=== PATIENT | male | born 1960 | race Caucasian/White ===

== ENCOUNTER 2020-09-04 17:36 | Emergency (ER) | payer OTHER, SELFPAY ==
--- NOTE | 2020-09-04 | XR_ITS ---
EXAMINATION: XR FINGER, LEFT CLINICAL INFORMATION: cut lmf on saw COMPARISON: None TECHNIQUE: 3 views of the left middle finger. FINDINGS: There is a bandage over the distal middle digit which obscures bone detail. There is a comminuted fracture of the distal tuft of the distal phalanx of the middle digit. There is displacement of fracture fragments. IMPRESSION: Comminuted fracture of the distal tuft of the middle digit.
[2020-09-04 17:51] VITALS: BP 153/88; PULSE 88; RESP 16; TEMP 36.7; O2SAT 96; BMI 36.3
[2020-09-04 20:19] VITALS: BP 181/104; PULSE 86; RESP 16; O2SAT 97
[2020-09-04] MEDS: Lidocaine HCl 2 % MPF 5 ML VIAL INFILTRATI ×2 (20:35)
--- NOTE | 2020-09-04 21:11 | PC.NURSE ---
PROVIDER AT BEDSIDE.
[2020-09-04 22:00] VITALS: BP 145/88; PULSE 85; RESP 15; O2SAT 98
--- NOTE | 2020-09-04 22:36 | ED.WOUNDLAC ---
HPI - Wound/Laceration General Chief Complaint: Wound/Laceration Stated Complaint: FINGER LAC Time Seen by Provider: 09/04/20 20:26 History of Present Illness HPI narrative: patient presents to ED for laceration of left middle finger caused by saw at work. Patient states has complete range of motion of finger and has sensation, but laceration is severe Extremity Location: left: hand Place: work Patient tetanus UTD: Yes Context: accidental Associated symptoms: none Treatments prior to arrival: bandage Related Data Previous Rx's Medication Instructions Recorded clindamycin HCl 300 mg PO Q8H #30 cap 09/04/20 naproxen 500 mg PO BID PRN #20 tab 09/04/20 Allergies Allergy/AdvReac Type Severity Reaction Status Date / Time Penicillins Allergy Rash Verified 09/04/20 17:50 Review of Systems Review of Systems: Yes all other systems are reviewed and are negative Constitutional: Constitutional: Reports as per HPI and Reports no additional constitutional complaints Comments: rest of review systems normal. Only abnormality is left middle finger laceration. Musculoskeletal: Comments: positive for left middle finger laceration [facility] Past Medical History Medical History (Updated 09/05/20 @ 00:00 by Background Daemon) No known health problems Social History Social History Alcohol intake: former Smoking Status: Never smoker Advance Directives: No Advance Directives Information Provided: Yes Physical Exam Vital Signs and I&O and Narrative: Vital Signs and I&O: Vital Signs Temp 98.1 F 09/04/20 17:51 Pulse 85 09/04/20 22:00 Resp 15 09/04/20 22:00 BP 145/88 H 09/04/20 22:00 Pulse Ox 98 09/04/20 22:00 Intake & Output 09/04/20 09/04/20 09/05/20 06:59 18:59 06:59 Weight 118 kg Body Mass Index 36.3 Const: General: cooperative, healthy appearing and comfortable Orientation/consciousness: patient oriented x3 Chest: Chest palpation & inspection: normal inspection of the chest, normal palpation of entire chest wall, normal inspection of the chest and no crepitus Cardio: Jugular venous distension: no JVD Rate: regular rate Rhythm: regular rhythm Heart sounds: S1 normal heart sound present and S2 normal heart sound present GI: Inspection: Yes normal to inspection, No abdominal wall ecchymosis, No Abdominal wall edema, No distended, No incision and No Abdominal panniculus present Palpation (GI): nontender Neuro: General: patient oriented x3 and CN's II-XI intact bilaterally Cranial nerves: Yes CN's II-XII intact bilaterally Extrem: Other: Left middle finger positive for complicated laceration with many flaps, irregular bordered, wide lacerations due to missing skin and some muslce/fatexposure, but negative for any bone exposure. Patient has complete range of motion of left middle finger and has sensation. Negative for tendon injury. Neuro sensation is intact. Capillary refills intact. Laceration possibly involve nail bed injury. Course Course Course Narrative: patient was evaluated with doctor Faustin. Plan was to close wound as best as possible to prevent infection. Eight sutures were placed. Anesthesia was done with lidocaine 2%. Wound was cleaned with Betadine and normal saline. Once again complex lacerations of left middle finger which were wide, irregular borders, and multiple flaps. Patient will need close outpatient follow-up with hand surgeon at [facility] for cosmetic, plastic hand repair in the near future. Patient discharged antibiotics. X-ray shows commuted middle finger digital tuft fracture Reevaluation(s) Reevaluation #1: spoke with Dr. Alonso of [facility] hand surgery and he states patient can call clinic tomorrow for close follow-up. Finger was dressed with guaze. patient is uptodate with tetanus Presently no urgent need for immediate transfer to [facility] ER Time: 22:41 Procedures Laceration Laceration 1: Site: upper extremity and hand ( Left middle finger laceration. Lacerations very irregular borders, flaps, muscle exposure, and very wide. Negative for any bone exposure. Patient has complete range of motion of flexor and extensor attending. Negative for tendon injury. Neuro exam is intact) Side (If applicable): left Size (cm): 0.3 Description: flap and irregular Depth: involves muscle layer Local Anesthetic: lidocaine 2% Pre-repair: wound explored, irrigated extensively and deep structures intact Skin layer closed with: nylon Size (cm): 3-0 Number of sutures: 9 Technique: simple, interrupted MDM - Wound/Laceration MDM Narrative Medical decision making narrative: complex left middle finger laceration repaired. Patient also has committed distal tuft fracture of left middle finger. Negative any tendon injury. Vascular exam is intact. Neuro exam intact. Patient is safe for discharge. Patient informed to call Dr. Alonso is office of [facility] surgery for follow-up tomorrow Discharge Plan Discharge Clinical Impression: Laceration, Finger fracture, left Patient Disposition: Home, Self-Care Instructions: Finger Fracture (ED), Finger Laceration (ED) Additional Instructions: return to the ED immediately for any swelling, redness, pus discharge, foul odor, red streaks, fever, chills, or any other concerning symptoms. Please call [facility] hand surgery office tomorrow as recommended by Dr. Alonso of [facility] orthopedic service for Left middle finger comminuted fracture of the distal tuft with complicated laceration that needs plastic hand surgeon intervention. call the number [phone] Prescriptions: New clindamycin HCl 300 mg capsule 300 mg PO Q8H Qty: 30 RF: 0 naproxen 500 mg tablet 500 mg PO BID PRN (Reason: pain) Qty: 20 RF: 0 Referrals: Ross Alonso MD [Physician] - 2 days (Left middle finger comminuted fracture of the distal tuft with complicated lacerations that will need plastic hand surgeon intervention.) Interventions: ED Discharge Assessment Last Done: 09/04/20 23:01 Discharge Date/Time: 09/04/20 23:23 Print Language: Gambian
--- NOTE | 2020-09-04 22:50 | PC.NURSE ---
PATIENT AWAITING DISCHARGE AND APPT WITH [facility]. PATIENT STITCH AND TOLERATED THE PROCEDURE WELL
== END 2020-09-04 23:23 | disposition home or self-care (01) ==
PROVIDERS: Emergency Provider Internal Medicine; PCP Internal Medicine
DX: S61.213A Laceration without foreign body of left middle finger without damage to nail, initial encounter (principal); M79.642 Pain in left hand; W26.9XXA Contact with unspecified sharp object(s), initial encounter; Y93.9 Activity, unspecified; Y92.9 Unspecified place or not applicable; Y99.0 Civilian activity done for income or pay
CPT/HCPCS: 12041; 73140; 99284

== ENCOUNTER 2021-01-02 08:23 | Outpatient (REF) | payer OTHER, SELFPAY ==
[2021-01-02 12:08] LABS: Alanine Aminotransferase 22 U/L (0-40); Albumin Level 4.1 g/dL (3.5-5.0); Alkaline Phosphatase 68 U/L (39-117); Anion Gap 11 (12-20); Aspartate Amino Transferase 20 U/L (5-37); Bilirubin Total 0.6 mg/dL (0.0-1.0); Blood Urea Nitrogen 24 mg/dL (9-16); C Reactive Protein 0.08 mg/dL (< or = 0.50); Calcium 8.8 mg/dL (8.4-10.2); Carbon Dioxide 27 mmol/L (22-29); Chloride 107 mmol/L (96-108); Cholesterol 202 mg/dL; Estimated Glomerular Filt Rate > 60; Glucose Fasting 110 mg/dL (60-99); HDL Cholesterol 45 mg/dL; LDL Cholesterol Calculated 139 mg/dl; Potassium 4.7 mmol/L (3.3-5.1); Sodium 140 mmol/L (135-145); Total Protein 6.3 g/dL (6.5-8.0); Triglycerides 90 mg/dL
[2021-01-02 12:27] LABS: Erythrocyte Sedimentation Rate 2 MM/HR (0-15)
[2021-01-02 12:50] LABS: Estimated Average Glucose 105 mg/dL; Hemoglobin A1c % 5.3 %
[2021-01-03 09:12] LABS: Lyme Abs Screen <0.90 index
== END 2021-01-02 08:24 | disposition home or self-care (01) ==
LOC: HO.MANLDS 08:23
PROVIDERS: PCP Internal Medicine; Visit Provider Physician Assistant
DX: M25.50 Pain in unspecified joint (principal); R73.01 Impaired fasting glucose; E87.8 Other disorders of electrolyte and fluid balance, not elsewhere classified; Z13.6 Encounter for screening for cardiovascular disorders
CPT/HCPCS: 36415; 80053; 80061; 83036; 85652; 86140; 86618

== ENCOUNTER 2021-02-15 12:27 | Outpatient (REF) | payer OTHER, SELFPAY ==
--- NOTE | ~2021-02-15 | XR_ITS ---
EXAMINATION: XR THORACIC SPINE XR CERVICAL SPINE CLINICAL INFORMATION: Neck pain. COMPARISON: None TECHNIQUE: Five views cervical spine. Three views thoracic spine. FINDINGS: CERVICAL SPINE: There is normal cervical lordosis. The vertebral heights and alignment are normal. There is loss of C5-C6 and C6-C7 disc heights with mild ventral spondylosis. The rest of the disc heights are normal. There is moderate narrowing of C5-C6 and C6-C7 neural foramina from uncovertebral hypertrophic changes. There is no lytic or sclerotic process seen. There is moderate right C2-C3 through C5-C6 facet joint arthropathy. The paravertebral soft tissues are normal. DORSAL SPINE: There is maintained thoracic kyphosis. The vertebral heights and alignment are normal. There is mild loss of lower disc heights with moderate spondylosis. No acute fracture or lytic process seen. The paravertebral soft tissues are normal. XR/XR thoracic spine 3V IMPRESSION: No acute fracture or dislocation in the cervical spine or dorsal spine. There are degenerative disc changes C5-C6 and C6-C7 disc levels with bilateral narrowing of neural foramina. There is [id number] ventral spondylosis lower dorsal spine.
--- NOTE | ~2021-02-15 | XR_ITS ---
EXAMINATION: XR THORACIC SPINE XR CERVICAL SPINE CLINICAL INFORMATION: Neck pain. COMPARISON: None TECHNIQUE: Five views cervical spine. Three views thoracic spine. FINDINGS: CERVICAL SPINE: There is normal cervical lordosis. The vertebral heights and alignment are normal. There is loss of C5-C6 and C6-C7 disc heights with mild ventral spondylosis. The rest of the disc heights are normal. There is moderate narrowing of C5-C6 and C6-C7 neural foramina from uncovertebral hypertrophic changes. There is no lytic or sclerotic process seen. There is moderate right C2-C3 through C5-C6 facet joint arthropathy. The paravertebral soft tissues are normal. DORSAL SPINE: There is maintained thoracic kyphosis. The vertebral heights and alignment are normal. There is mild loss of lower disc heights with moderate spondylosis. No acute fracture or lytic process seen. The paravertebral soft tissues are normal. XR/XR cervical spine min 6V IMPRESSION: No acute fracture or dislocation in the cervical spine or dorsal spine. There are degenerative disc changes C5-C6 and C6-C7 disc levels with bilateral narrowing of neural foramina. There is [id number] ventral spondylosis lower dorsal spine.
== END 2021-02-15 12:28 | disposition home or self-care (01) ==
LOC: HO.XRAY 12:27
PROVIDERS: PCP Internal Medicine; Visit Provider Physician Assistant
DX: M54.2 Cervicalgia (principal); M54.6 Pain in thoracic spine
CPT/HCPCS: 72052; 72072

== ENCOUNTER 2021-07-16 09:42 | Outpatient (REF) | payer OTHER, SELFPAY ==
[2021-07-16 11:06] LABS: MANUAL DIFF FLAG NO
[2021-07-16 11:11] LABS: Basophils Percent Auto 0.4 % (0-2); Eosinophils Absolute Auto 0.2 X10*3/uL (0.0-0.4); Eosinophils Percent Auto 3.9 % (0-4); Hematocrit 43.7 % (42-52); Imm Gran Abs Auto 0.02 X10*3/uL (0.00-0.03); Imm Gran Pct Auto 0.4 % (0.0-0.4); Lymphocytes Absolute Auto 1.1 X10*3/uL (1.2-4.9); Lymphocytes Percent Auto 22.7 % (20-40); Mean Corpuscular HGB Conc 34.3 g/dl (31.0-36.0); Mean Corpuscular Hemoglobin 30.5 pg (27.0-33.0); Mean Platelet Volume 10.6 fL (9.4-12.4); Monocytes Absolute Auto 0.4 X10*3/uL (0.1-1.2); Monocytes Percent Auto 9.1 % (2-11); Neutrophils Absolute Auto 3.1 X10*3/uL (2.0-8.3); Neutrophils Percent Auto 63.5 % (45-73); Platelet Count 169 X10*3/uL (160-400); Red Blood Count 4.91 X10*6/uL (4.60-5.80); Red Cell Distribution Width 12.6 % (11.0-16.0); White Blood Count 4.8 X10*3/uL (4.8-10.8)
[2021-07-16 11:23] LABS: Estimated Average Glucose 105 mg/dL; Hemoglobin A1c % 5.3 %
[2021-07-16 11:44] LABS: Alanine Aminotransferase 49 U/L (0-40); Albumin Level 4.4 g/dL (3.5-5.0); Alkaline Phosphatase 73 U/L (39-117); Anion Gap 13 (12-20); Aspartate Amino Transferase 28 U/L (5-37); Bilirubin Total 0.7 mg/dL (0.0-1.0); Blood Urea Nitrogen 20 mg/dL (9-16); Calcium 9.1 mg/dL (8.4-10.2); Carbon Dioxide 24 mmol/L (22-29); Chloride 110 mmol/L (96-108); Cholesterol 212 mg/dL; Estimated Glomerular Filt Rate > 60; Glucose Fasting 101 mg/dL (60-99); HDL Cholesterol 44 mg/dL; LDL Cholesterol Calculated 146 mg/dl; Potassium 4.7 mmol/L (3.3-5.1); Sodium 142 mmol/L (135-145); Total Protein 6.7 g/dL (6.5-8.0); Triglycerides 110 mg/dL; Uric Acid 6.6 mg/dL (3.4-7.0)
[2021-07-16 11:59] LABS: Prostate Specific Antigen 5.44 ng/mL (<0.05-4.0)
[2021-07-16 12:05] LABS: Thyroid Stimulating Hormone 0.75 uIU/mL (0.32-4.0)
[2021-07-16 13:12] LABS: Vitamin B12 646 pg/mL (200-900)
[2021-07-17 08:08] LABS: ~HepC Num1 0.14 S/CO (0.00-0.79); ~Hepatitis C Antibody Nonreactive (Nonreactive)
== END 2021-07-16 09:43 | disposition home or self-care (01) ==
LOC: HO.MANLDS 09:42
PROVIDERS: PCP Internal Medicine; Visit Provider Internal Medicine
DX: Z00.00 Encounter for general adult medical examination without abnormal findings (principal); Z12.5 Encounter for screening for malignant neoplasm of prostate; Z11.59 Encounter for screening for other viral diseases; M10.9 Gout, unspecified; R73.01 Impaired fasting glucose
CPT/HCPCS: 36415; 80053; 80061; 82607; 83036; 84153; 84443; 84550; 85025; 86803

== ENCOUNTER 2021-07-18 09:54 | Outpatient (REF) | payer OTHER, SELFPAY | END 2021-07-18 09:55 | disposition home or self-care (01) | LOC: HO.XRAY 09:54 | PROVIDERS: PCP Internal Medicine; Visit Provider Internal Medicine | DX: Z13.89 Encounter for screening for other disorder (principal) ==

== ENCOUNTER 2021-07-22 13:52 | Outpatient (REF) | payer OTHER, SELFPAY ==
--- NOTE | ~2021-07-22 | XR_ITS ---
EXAMINATION: XR KNEE, RIGHT CLINICAL INFORMATION: Medial right knee pain. COMPARISON: None TECHNIQUE: Four views of the right knee. FINDINGS: Bones and soft tissues are normal. No fracture or joint effusion. Alignment is anatomic. Joint spaces are well maintained. No abnormal soft tissue calcification. XR/XR knee RT 4V IMPRESSION: Unremarkable right knee exam.
== END 2021-07-22 13:53 | disposition home or self-care (01) ==
LOC: HO.XRAY 13:52
PROVIDERS: PCP Internal Medicine; Visit Provider Internal Medicine
DX: M23.301 Other meniscus derangements, unspecified lateral meniscus, left knee (principal)
CPT/HCPCS: 73564

== ENCOUNTER 2022-09-12 10:28 | Outpatient (REF) | payer OTHER, SELFPAY ==
[2022-09-12 15:01] LABS: Prostate Specific Antigen 4.48 ng/mL (<0.05-4.0)
[2022-09-12 18:06] LABS: MANUAL DIFF FLAG NO
[2022-09-12 18:12] LABS: Basophils Percent Auto 0.5 % (0-2); Eosinophils Absolute Auto 0.2 X10*3/uL (0.0-0.4); Eosinophils Percent Auto 3.4 % (0-4); Hematocrit 44.3 % (42.0-52.0); Hemoglobin 15.3 g/dl (14.0-18.0); Imm Gran Abs Auto 0.02 X10*3/uL (0.00-0.03); Imm Gran Pct Auto 0.3 % (0.0-0.4); Lymphocytes Absolute Auto 1.7 X10*3/uL (1.2-4.9); Lymphocytes Percent Auto 28.6 % (20-40); Mean Corpuscular HGB Conc 34.5 g/dl (31.0-36.0); Mean Corpuscular Hemoglobin 30.5 pg (27.0-33.0); Mean Corpuscular Volume 88.2 fL (80.0-98.0); Mean Platelet Volume 10.8 fL (9.4-12.4); Monocytes Absolute Auto 0.6 X10*3/uL (0.1-1.2); Monocytes Percent Auto 9.2 % (2-11); Neutrophils Absolute Auto 3.5 x10*3/uL (2.0-8.3); Platelet Count 178 X10*3/uL (160-400); Red Blood Count 5.02 X10*6/uL (4.60-5.80); Red Cell Distribution Width 12.7 % (11.0-16.0)
[2022-09-12 18:19] LABS: Estimated Average Glucose 100 mg/dL; Hemoglobin A1c % 5.1 %
[2022-09-12 18:29] LABS: Alanine Aminotransferase 19 U/L (0-40); Albumin Level 4.5 g/dL (3.5-5.0); Alkaline Phosphatase 93 U/L (39-117); Anion Gap 15 (12-20); Aspartate Amino Transferase 21 U/L (5-37); Bilirubin Total 0.4 mg/dL (0.0-1.0); Blood Urea Nitrogen 17 mg/dL (9-16); Calcium 9.3 mg/dL (8.4-10.2); Carbon Dioxide 26 mmol/L (22-29); Chloride 103 mmol/L (96-108); Estimated Glomerular Filt Rate > 60; Glucose Random 88 mg/dL (60-115); Potassium 4.2 mmol/L (3.3-5.1); Sodium 140 mmol/L (135-145); Total Protein 6.7 g/dL (6.5-8.0)
[2022-09-12 18:42] LABS: Thyroid Stimulating Hormone 0.55 uIU/mL (0.32-4.0)
== END 2022-09-12 10:29 | disposition home or self-care (01) ==
LOC: HO.MANLDS 10:28
PROVIDERS: Visit Provider Internal Medicine
DX: Z12.5 Encounter for screening for malignant neoplasm of prostate (principal)
CPT/HCPCS: 36415; 80053; 83036; 84153; 84443; 85025

== ENCOUNTER 2023-12-29 10:22 | Outpatient (REF) | payer OTHER, SELFPAY ==
[2023-12-29 11:12] LABS: MANUAL DIFF FLAG NO
[2023-12-29 11:13] LABS: Basophils Percent Auto 0.2 % (0-2); Eosinophils Absolute Auto 0.1 X10*3/uL (0.0-0.4); Eosinophils Percent Auto 2.4 % (0-4); Hematocrit 45.9 % (42.0-52.0); Imm Gran Abs Auto 0.02 X10*3/uL (0.00-0.03); Imm Gran Pct Auto 0.4 % (0.0-0.4); Lymphocytes Absolute Auto 1.5 X10*3/uL (1.2-4.9); Lymphocytes Percent Auto 27.3 % (20-40); Mean Corpuscular HGB Conc 34.9 g/dl (31.0-36.0); Mean Corpuscular Hemoglobin 30.1 pg (27.0-33.0); Mean Corpuscular Volume 86.4 fL (80.0-98.0); Mean Platelet Volume 10.6 fL (9.4-12.4); Monocytes Absolute Auto 0.5 X10*3/uL (0.1-1.2); Monocytes Percent Auto 8.7 % (2-11); Neutrophils Absolute Auto 3.3 x10*3/uL (2.0-8.3); Platelet Count 162 X10*3/uL (160-400); Red Blood Count 5.31 X10*6/uL (4.60-5.80); White Blood Count 5.4 X10*3/uL (4.8-10.8)
[2023-12-29 11:24] LABS: Alanine Aminotransferase 19 U/L (0-40); Albumin Level 4.4 g/dL (3.5-5.0); Alkaline Phosphatase 76 U/L (39-117); Anion Gap 11 (12-20); Aspartate Amino Transferase 19 U/L (5-37); Bilirubin Total 0.4 mg/dL (0.0-1.0); Blood Urea Nitrogen 22 mg/dL (9-16); Calcium 9.2 mg/dL (8.4-10.2); Carbon Dioxide 22 mmol/L (22-29); Chloride 111 mmol/L (96-108); Cholesterol 214 mg/dL (<200); Estimated Glomerular Filt Rate > 60; Glucose Random 103 mg/dL (60-115); HDL Cholesterol 45 mg/dL (>40); LDL Cholesterol Calculated 149 mg/dL (<100); Potassium 4.4 mmol/L (3.3-5.1); Sodium 140 mmol/L (135-145); Total Protein 6.9 g/dL (6.5-8.0); Triglycerides 104 mg/dL (<150)
[2023-12-29 11:51] LABS: Prostate Specific Antigen 6.21 ng/mL (<0.05-4.0)
== END 2023-12-29 10:23 | disposition home or self-care (01) ==
LOC: HO.MANLDS 10:22
PROVIDERS: Visit Provider Internal Medicine
DX: Z00.00 Encounter for general adult medical examination without abnormal findings (principal); Z12.5 Encounter for screening for malignant neoplasm of prostate
CPT/HCPCS: 36415; 80053; 80061; 84153; 85025

== ENCOUNTER 2024-06-28 08:26 | Outpatient (REF) | payer OTHER, SELFPAY ==
[2024-06-28 14:17] LABS: Alanine Aminotransferase 17 U/L (0-40); Albumin Level 4.5 g/dL (3.5-5.0); Alkaline Phosphatase 68 U/L (39-117); Anion Gap 12 (12-20); Aspartate Amino Transferase 20 U/L (5-37); Bilirubin Total 0.5 mg/dL (0.0-1.0); Blood Urea Nitrogen 22 mg/dL (9-16); Calcium 9.9 mg/dL (8.4-10.2); Carbon Dioxide 26 mmol/L (22-29); Chloride 107 mmol/L (96-108); Cholesterol 193 mg/dL (<200); Estimated Glomerular Filt Rate > 60; Glucose Random 94 mg/dL (60-115); HDL Cholesterol 47 mg/dL (>40); LDL Cholesterol Calculated 131 mg/dL (<100); Sodium 140 mmol/L (135-145); Total Protein 6.8 g/dL (6.5-8.0); Triglycerides 78 mg/dL (<150)
[2024-06-28 14:33] LABS: Prostate Specific Antigen 6.22 ng/mL (<0.05-4.0)
== END 2024-06-28 08:27 | disposition home or self-care (01) ==
LOC: HO.MANLDS 08:26
PROVIDERS: Visit Provider Internal Medicine
DX: R97.20 Elevated prostate specific antigen [PSA] (principal); Z13.220 Encounter for screening for lipoid disorders; Z12.5 Encounter for screening for malignant neoplasm of prostate
CPT/HCPCS: 36415; 80053; 80061; 84153

== ENCOUNTER 2024-09-29 16:04 | Outpatient (REF) | payer OTHER, SELFPAY ==
[2024-09-29 17:33] LABS: Prostate Specific Antigen 6.63 ng/mL (<0.05-4.0)
== END 2024-09-29 16:05 | disposition home or self-care (01) ==
LOC: HO.LAB 16:04
PROVIDERS: PCP Internal Medicine; Visit Provider Urology
DX: R97.20 Elevated prostate specific antigen [PSA] (principal); Z12.5 Encounter for screening for malignant neoplasm of prostate
CPT/HCPCS: 36415; 84153